=== PATIENT | male | born 1995 | race Caucasian/White ===

== ENCOUNTER 2016-10-28 12:11 | Inpatient (IN) | payer OTHER ==
[2016-10-28 13:36] VITALS: BMI 26.6
--- NOTE | 2016-10-28 15:45 | HP ---
COWS - Scale Resting Pulse: 0= ME 80 or Below Sweatin= Chills/Flushing Restless Observation: 3= Extraneous Movement Pupil Size: 2= Moderately Dilated Bone or Joint Aches: 4=Acute Joint/Muscle Pain Runny Nose/ Eye Tearin= Nasal Congestion GI Upset > 30mins: 3= Vomiting/Diarrhea Tremor Observation: 1= Tremor Butler, Not Seen Yawning Observation: 1= 1-2x During Session Anxiety or Irritability: 2=Irritable/Anxious Goose Flesh Skin: 0=Smooth Skin COWS Score: 18 Admission ROS [facility] Chief Complaint: DETOX TX FOR PERCOCETS DEPENDENCE Allergies/Adverse Reactions: Allergies Allergy/AdvReac Type Severity Reaction Status Date / Time cefaclor [From [facility]] Allergy Severe Hives Verified 10/28/16 15:41 History of Present Illness: 21 Y/O MALE WITH A HX OF PERCOCETS DEPENDENCE AND SPORADIC COCAINE AND MARIJUANA USE SEEKING DETOX TX FOR THE FIRST TIME. PT WAS REFERRED TO DETOX FROM THE [facility]. PT STATES WAS THERE [employer] [facility] FOR SEVERE WITHDRAWAL SX-NAUSEA,VOMITING, DIARRHEA,HOT/COLD FLASHES, BODYACHES,ANXIETY,IRRITABILITY. STATES WAS INFUSED WITH IV HYDRATION AND D/C'D THIS MORNING AND REFERRED TO DETOX AND REHAB.. COPY OF D/C PAPERS IN PT'S CHART. ADDENDUM: PT ALSO HAS BRACE ON HIS LEFT HAND FROM SX DUE TO FALL IN SEPTEMBER AT SAME HOSPITAL. PT WAS TO RETURNED TO HIS DOCTOR TO TAKE OUT THE PIN YESTERDAY BUT FOR THE SNOWFALL AND WITHDRAWAL SX, HE DID NOT MAKE IT. PT TO F/U AFTER DETOX. Exam Limitations: No Limitations - Ebola screening Have you traveled outside of the country in the last 21 days: No Have you had contact with anyone from an Ebola affected area: No Have you been sick,other than usual withdrawal symptoms: No Do you have a fever: No - Review of Systems Constitutional: Chills, Loss of Appetite, Night Sweats, Changes in sleep EENT: reports: Tearing, Nose Congestion Respiratory: reports: Shortness of Breath (HX ASTHMA), Wheezing Cardiac: reports: Lightheadedness GI: reports: Constipated, Diarrhea, Nausea, Poor Appetite, Poor Fluid Intake, Vomiting : reports: Dysuria (DUE TO OPIATE USE) Musculoskeletal: reports: Joint Pain, Muscle Pain, Other (FX LEFT HAND DUE TO FALL IN FERUARY 2017. SX AT THE [facility] WITH PINS AND ON HAND BRACE.) Integumentary: reports: No Symptoms Reported Neuro: reports: Headache, Tremors, Dizziness Hematology: reports: No Symptoms Reported Psychiatric: reports: Orientated x3, Anxious Other Systems: Reviewed and Negative Patient History - Patient Medical History Hx Anemia: No Hx Asthma: Yes (MDI) Hx Cardiac Disorders: No Hx Hypertension: No Hx Hypercholesterolemia: No HX Cerebrovascular Accident: No Hx Seizures: No Hx Diabetes: No Hx Gastrointestinal Disorders: No Hx Genitourinary Disorders: No Hx Sexually Transmitted Disorders: No Hx Renal Disease (ESRD): No Hx Thyroid Disease: No Hx Human Immunodeficiency Virus (HIV): No (NEGATIVE HX) Hx Hepatitis C: No Hx Depression: No Hx Suicide Attempt: No (DENIES) Hx Bipolar Disorder: No Hx Schizophrenia: No - Patient Surgical History Past Surgical History: Yes Hx Neurologic Surgery: No Hx Cataract Extraction: No Hx Cardiac Surgery: No Hx Lung Surgery: No Hx Breast Surgery: No Hx Breast Biopsy: No Hx Abdominal Surgery: No Hx Appendectomy: No Hx Cholecystectomy: No Hx Genitourinary Surgery: No Hx Orthopedic Surgery: Yes (LEFT HAND DUE TO FALL FX WITH PINS--09/2016) Anesthesia Reaction: No - PPD History Previous Implant?: Yes (BUT NOT SURE) Documented Results: Negative w/o proof Implanted On Prior [facility] Admission?: No PPD to be Administered?: Yes - Reproductive History Patient is a Female of Child Bearing Age (11 -55 yrs old): No (MALE) - Smoking Cessation Smoking history: Current every day smoker Have you smoked in the past 12 months: Yes Aproximately how many cigarettes per day: 1 Hx Chewing Tobacco Use: No Initiated information on smoking cessation: Yes 'Breaking Loose' booklet given: 10/28/16 - Substance & Tx. History Hx Alcohol Use: No (DENIES) Hx Substance Use: Yes (PERCOCETS/COCAINE/MARIJUANA) Substance Use Type: Opiates Hx Substance Use Treatment: No (NEVER BEEN IN TREATMENT) - Substances Abused PERCOCETS Route: Oral Frequency: Daily Amount used: 12 PILLS(10 MG EACH) Age of first use: 18 Date of Last Use: 10/26/16 Cocaine Route: Inhalation Frequency: 1-3 times last 30 days Amount used: $20 Age of first use: 19 Date of Last Use: 10/06/16 Marijuana/Hashish Route: Smoking Frequency: 1-3 times last 30 days Amount used: 1 BLUNT Age of first use: 16 Date of Last Use: 10/27/16 Family Disease History - Family Disease History Family Disease History: Diabetes: Grandparent, Mother Admission Physical Exam [facility] - Vital Signs Vital Signs: Vital Signs - 24 hr 10/28/16 13:34 Temperature 98.2 F Pulse Rate 68 Respiratory 18 Rate Blood Pressure 127/77 - Physical General Appearance: Yes: Moderate Distress, Irritable, Anxious HEENTM: Yes: EOMI, Normocephalic, ELISE, Pharynx Normal, Nasal Congestion, Rhinorrhea Respiratory: Yes: Chest Non-Tender, Lungs Clear, Normal Breath Sounds, No Respiratory Distress Neck: Yes: Supple, Trachea in good position Breast: Yes: Breast Exam Deferred Cardiology: Yes: Regular Rhythm, Regular Rate, S1, S2 Abdominal: Yes: Normal Bowel Sounds, Non Tender, Soft Genitourinary: Yes: Other (N/C) Back: Yes: Within Normal Limits Musculoskeletal: Yes: full range of Motion, Gait Steady, Other (LEFT HAND ON BRACE. ACTIVE ROM ON FINGERS. COLOR WNL.) Extremities: Yes: Normal Range of Motion, Non-Tender Neurological: Yes: pet handler II-XII NML intact, Fully Oriented, Alert, Motor Strength 5/5 Integumentary: Yes: Dry, Warm Lymphatic: Yes: Within Normal Limits - Diagnostic (1) Opioid dependence with withdrawal Current Visit: Yes Status: Acute (2) Cocaine abuse Current Visit: Yes Status: Acute (3) Marijuana abuse Current Visit: Yes Status: Acute (4) History of asthma Current Visit: Yes Status: Chronic Cleared for Admission [facility] - Detox or Rehab [facility] Level of Care: Medically Managed Detox Regimen/Protocol: Methadone [facility] Breath Alcohol Content Breath Alcohol Content: 0 Urine Drug Screen - Results Drug Screen Negative: No Urine Drug Screen Results: THC-Marijuana, MARY-Cocaine, OXY-Oxycodone
[2016-10-28] MEDS ORDERED: MENTHOL/PHENOL 1 EACH UD MM PRN (16:10)
[2016-10-28] MEDS ORDERED: MAGNESIUM CITRATE 300 ML BOTTLE PO PRN (16:10)
[2016-10-28] MEDS ORDERED: ACETAMINOPHEN 325 MG TABLET (FP) PO PRN (16:10)
[2016-10-28] MEDS ORDERED: P-EPHED 60MG/TRIPROLIDI 2.5MG TABLET PO PRN (16:10)
[2016-10-28] MEDS ORDERED: IBUPROFEN 400 MG TABLET (FP) PO PRN (16:10)
[2016-10-28] MEDS ORDERED: NICOTINE POLACRILEX 2 MG GUM BC PRN (16:10)
[2016-10-28] MEDS ORDERED: guaiFENesin/D-METHORPHAN HB 10 ML UNIT-DOSE CUPS PO PRN (16:10)
[2016-10-28] MEDS ORDERED: MAG HYDROX/AL HYDROX/SIMETH 30 ML UNIT-DOSE CUP PO PRN (16:10)
[2016-10-28] MEDS ORDERED: MAGNESIUM HYDROX 2400MG/30ML ORAL SUSPENSION 30 ML CUP PO PRN (16:10)
[2016-10-28] MEDS ORDERED: CYCLOBENZAPRINE HCL 10 MG TABLET (FP) PO PRN (16:12)
[2016-10-28] MEDS ORDERED: cloNIDine HCL 0.1 MG TABLET PO PRN (16:13)
[2016-10-28] MEDS ORDERED: METHADONE HCL 10 MG TABLET (FOR DETOX USE ONLY) PO ONE ×2 (17:15→23:00)
[2016-10-28] MEDS: diazePAM 5 MG TABLET PO PRN ×2 (17:29→22:06)
[2016-10-28] MEDS: diphenhydrAMINE HCL 50 MG CAPSULE PO PRN (22:06)
[2016-10-28] MEDS: THIAMINE HCL 100 MG TABLET (FP) PO SCH (22:06)
[2016-10-28] MEDS: ALBUTEROL SO4 6.7 GM HFA INHALER IH PRN (22:07)
[2016-10-28 22:23] LABS: URINE APPEARANCE CLEAR; URINE BILIRUBIN NEGATIVE (NEGATIVE); URINE BLOOD NEGATIVE (NEGATIVE); URINE COLOR DKYELLOW; URINE GLUCOSE (UA) NEGATIVE (NEGATIVE); URINE KETONE TRACE (NEGATIVE); URINE LEUK ESTERASE NEGATIVE (NEGATIVE); URINE NITRITE NEGATIVE (NEGATIVE); URINE PROTEIN NEGATIVE (NEGATIVE); URINE UROBILINOGEN NEGATIVE E.U./dl (0.2-1.0)
[2016-10-29] MEDS: diazePAM 5 MG TABLET PO PRN ×4 (05:46→22:02)
[2016-10-29] MEDS: LOPERAMIDE HCL 2 MG CAPSULE PO PRN (08:59)
--- NOTE | 2016-10-29 09:15 | PN ---
BHS COWS - Scale Resting Pulse: 0= OK 80 or Below Sweatin= Chills/Flushing Restless Observation: 3= Extraneous Movement Pupil Size: 1= Pupils >than Normal Bone or Joint Aches: 2= Severe Diffuse Aches Runny Nose/ Eye Tearin= Runny Nose/Eyes GI Upset > 30mins: 3= Vomiting/Diarrhea Tremor Observation of Outstretched Hands: 2= Slight Tremor Visible Yawning Observation: 1= 1-2x During Session Anxiety or Irritability: 2=Irritable/Anxious Goose Flesh Skin: 0=Smooth Skin COWS Score: 17 BHS Progress Note (SOAP) Subjective: ALERT,IRRITABLE,ANXIOUS,INTERRUPTED SLEEP,TREMOR,PAIN IN THE BODY AND BACK Objective: 10/29/16 09:13 Vital Signs Temperature 97.6 F 10/29/16 06:36 Pulse Rate 61 10/29/16 06:36 Respiratory Rate 16 10/29/16 06:36 Blood Pressure 123/72 10/29/16 06:36 O2 Sat by Pulse Oximetry (%) EKG NSR,NORMAL ECG Laboratory Last Values Urine Color Dkyellow 10/28/16 22:10 Urine Appearance Clear 10/28/16 22:10 Urine pH 5.0 (5.0-8.0) 10/28/16 22:10 Ur Specific [place] 1.036 (1.001-1.035) H 10/28/16 22:10 Urine Protein Negative (NEGATIVE) 10/28/16 22:10 Urine Glucose (UA) Negative (NEGATIVE) 10/28/16 22:10 Urine Ketones Trace (NEGATIVE) H 10/28/16 22:10 Urine Blood Negative (NEGATIVE) 10/28/16 22:10 Urine Nitrite Negative (NEGATIVE) 10/28/16 22:10 Urine Bilirubin Negative (NEGATIVE) 10/28/16 22:10 Urine Urobilinogen Negative E.U./dl (0.2-1.0) 10/28/16 22:10 Ur Leukocyte Esterase Negative (NEGATIVE) 10/28/16 22:10 LABS PENDING Assessment: 10/29/16 09:14 WITHDRAWAL SYMPTOM Plan: WITHDRAWAL SYMPTOM,CONTINUE DETOX
[2016-10-29] MEDS ORDERED: METHADONE HCL 10 MG TABLET (FOR DETOX USE ONLY) PO ONE (10:00)
[2016-10-29 10:03] LABS: MCH 30.3 pg (25.7-33.7); MCHC 33.4 g/dl (32.0-35.9); MEAN CELL VOLUME 90.7 fl (80-96); MEAN PLT VOLUME 8.4 fl (7.5-11.1); PLATELET COUNT 298 K/MM3 (134-434); RDW 12.7 % (11.9-15.9); SGOT/AST 19 U/L (15-37); SGPT/ALT 57 U/L (12-78); WHITE BLOOD COUNT 7.1 K/mm3 (4.0-10.0)
[2016-10-29 10:09] LABS: ALBUMIN 4.9 g/dl (3.4-5.0); ALK PHOS 95 U/L (45-117); ANION GAP 8 (8-16); BILIRUBIN,TOTAL 0.7 mg/dL (0.2-1.0); CALCIUM 9.9 mg/dL (8.5-10.1); CO2 28 mmol/L (21-32); CREATININE 0.9 mg/dL (0.7-1.3); GLUCOSE,RANDOM 108 mg/dL (74-106); TOT PROT 8.1 g/dl (6.4-8.2)
[2016-10-29] MEDS: PRENATAL VITAMINS W/ FOLIC ACID TABLET (FP) PO SCH (10:11)
--- NOTE | 2016-10-29 15:26 | EKG ---
Test Reason : Blood Pressure : / mmHG Vent. Rate : 061 BPM Atrial Rate : 061 BPM P-R Int : 136 ms QRS Dur : 096 ms QT Int : 394 ms P-R-T Axes : 060 051 015 degrees QTc Int : 396 ms NORMAL SINUS RHYTHM NORMAL ECG NO PREVIOUS ECGS AVAILABLE Confirmed by LESLEY DELANEY MD ([id number]) on 10/29/2016 3:26:39 PM Referred By: Confirmed By:LESLEY DELANEY MD
[2016-10-29] MEDS: ALBUTEROL SO4 6.7 GM HFA INHALER IH PRN (17:27)
[2016-10-29] MEDS: THIAMINE HCL 100 MG TABLET (FP) PO SCH (22:03)
[2016-10-29] MEDS: diphenhydrAMINE HCL 50 MG CAPSULE PO PRN (22:03)
[2016-10-30] MEDS: diazePAM 5 MG TABLET PO PRN ×4 (05:21→22:06)
[2016-10-30] MEDS: ALBUTEROL SO4 6.7 GM HFA INHALER IH PRN ×2 (05:22→22:07)
[2016-10-30] MEDS ORDERED: METHADONE HCL 5 MG TABLET (FOR DETOX USE ONLY) PO ONE (10:00)
[2016-10-30] MEDS: PRENATAL VITAMINS W/ FOLIC ACID TABLET (FP) PO SCH (10:14)
[2016-10-30] MEDS: LOPERAMIDE HCL 2 MG CAPSULE PO PRN (11:45)
--- NOTE | 2016-10-30 12:27 | PN ---
BHS COWS - Scale Resting Pulse: 1= AL 81-100 Sweatin= Chills/Flushing Restless Observation: 1= Difficult to Sit Still Pupil Size: 0= Normal to Room Light Bone or Joint Aches: 2= Severe Diffuse Aches Runny Nose/ Eye Tearin= Runny Nose/Eyes GI Upset > 30mins: 0= None Tremor Observation of Outstretched Hands: 2= Slight Tremor Visible Yawning Observation: 1= 1-2x During Session Anxiety or Irritability: 2=Irritable/Anxious Goose Flesh Skin: 3=Piloerection COWS Score: 15 BHS Progress Note (SOAP) Subjective: Interrupted sleep, Tremors, Sweating, body Aches, Hot / Cold sensations, Anxiety. Objective: PT. A & O X 2 (DISORIENTED ABOUT DAY /DATE). PT. OBSERVED AMBULATING ON UNIT. 10/30/16 12:23 Vital Signs Temperature 96.4 F L 10/30/16 10:21 Pulse Rate 81 10/30/16 10:21 Respiratory Rate 20 10/30/16 10:21 Blood Pressure 133/75 10/30/16 10:21 O2 Sat by Pulse Oximetry (%) Laboratory Last Values WBC 7.1 K/mm3 (4.0-10.0) 10/29/16 06:00 RBC 4.68 M/mm3 (4.00-5.60) 10/29/16 06:00 Hgb 14.2 GM/dL (11.7-16.9) 10/29/16 06:00 Hct 42.5 % (35.4-49) 10/29/16 06:00 MCV 90.7 fl (80-96) 10/29/16 06:00 MCHC 33.4 g/dl (32.0-35.9) 10/29/16 06:00 RDW 12.7 % (11.9-15.9) 10/29/16 06:00 Plt Count 298 K/MM3 (134-434) 10/29/16 06:00 MPV 8.4 fl (7.5-11.1) 10/29/16 06:00 Sodium 142 mmol/L (136-145) 10/29/16 06:00 Potassium 4.2 mmol/L (3.5-5.1) 10/29/16 06:00 Chloride 106 mmol/L (98-107) 10/29/16 06:00 Carbon Dioxide 28 mmol/L (21-32) 10/29/16 06:00 Anion Gap 8 (8-16) 10/29/16 06:00 BUN 12 mg/dL (7-18) 10/29/16 06:00 Creatinine 0.9 mg/dL (0.7-1.3) 10/29/16 06:00 Creat Clearance w eGFR > 60 (>60) 10/29/16 06:00 Random Glucose 108 mg/dL (74-106) H 10/29/16 06:00 Calcium 9.9 mg/dL (8.5-10.1) 10/29/16 06:00 Total Bilirubin 0.7 mg/dL (0.2-1.0) 10/29/16 06:00 AST 19 U/L (15-37) 10/29/16 06:00 ALT 57 U/L (12-78) 10/29/16 06:00 Alkaline Phosphatase 95 U/L (45-117) 10/29/16 06:00 Total Protein 8.1 g/dl (6.4-8.2) 10/29/16 06:00 Albumin 4.9 g/dl (3.4-5.0) 10/29/16 06:00 Urine Color Dkyellow 10/28/16 22:10 Urine Appearance Clear 10/28/16 22:10 Urine pH 5.0 (5.0-8.0) 10/28/16 22:10 Ur Specific [place] 1.036 (1.001-1.035) H 10/28/16 22:10 Urine Protein Negative (NEGATIVE) 10/28/16 22:10 Urine Glucose (UA) Negative (NEGATIVE) 10/28/16 22:10 Urine Ketones Trace (NEGATIVE) H 10/28/16 22:10 Urine Blood Negative (NEGATIVE) 10/28/16 22:10 Urine Nitrite Negative (NEGATIVE) 10/28/16 22:10 Urine Bilirubin Negative (NEGATIVE) 10/28/16 22:10 Urine Urobilinogen Negative E.U./dl (0.2-1.0) 10/28/16 22:10 Ur Leukocyte Esterase Negative (NEGATIVE) 10/28/16 22:10 RPR Titer Nonreactive (NONREACTIVE) 10/29/16 06:00 Hepatitis C Antibody <0.1 s/co ratio (0.0-0.9) 10/28/16 06:00 LABS NOTED. Assessment: 10/30/16 12:25 WITHDRAWAL SYMPTOMS. Plan: CONTINUE DETOX.
[2016-10-30] MEDS: THIAMINE HCL 100 MG TABLET (FP) PO SCH (22:06)
[2016-10-30] MEDS: diphenhydrAMINE HCL 50 MG CAPSULE PO PRN (22:06)
[2016-10-31] MEDS: diazePAM 5 MG TABLET PO PRN ×2 (05:17→10:10)
[2016-10-31] MEDS: ALBUTEROL SO4 6.7 GM HFA INHALER IH PRN ×2 (05:18→18:31)
[2016-10-31] MEDS ORDERED: METHADONE HCL 5 MG TABLET (FOR DETOX USE ONLY) PO ONE (10:00)
[2016-10-31] MEDS: PRENATAL VITAMINS W/ FOLIC ACID TABLET (FP) PO SCH (10:07)
[2016-10-31] MEDS: LOPERAMIDE HCL 2 MG CAPSULE PO PRN (10:08)
--- NOTE | 2016-10-31 13:48 | PN ---
S Progress Note (SOAP) Subjective: Sweating, Stomach Cramping, Diarrhea, Tremors, Body Aches. Objective: PT. A & O X 2 (DISORIENTED ABOUT DAY / DATE). PT. OBSERVED AMBULATING ON UNIT. 10/31/16 13:46 Vital Signs Temperature 96.7 F L 10/31/16 13:04 Pulse Rate 100 H 10/31/16 13:04 Respiratory Rate 20 10/31/16 13:04 Blood Pressure 133/82 10/31/16 13:04 O2 Sat by Pulse Oximetry (%) Laboratory Last Values WBC 7.1 K/mm3 (4.0-10.0) 10/29/16 06:00 RBC 4.68 M/mm3 (4.00-5.60) 10/29/16 06:00 Hgb 14.2 GM/dL (11.7-16.9) 10/29/16 06:00 Hct 42.5 % (35.4-49) 10/29/16 06:00 MCV 90.7 fl (80-96) 10/29/16 06:00 MCHC 33.4 g/dl (32.0-35.9) 10/29/16 06:00 RDW 12.7 % (11.9-15.9) 10/29/16 06:00 Plt Count 298 K/MM3 (134-434) 10/29/16 06:00 MPV 8.4 fl (7.5-11.1) 10/29/16 06:00 Sodium 142 mmol/L (136-145) 10/29/16 06:00 Potassium 4.2 mmol/L (3.5-5.1) 10/29/16 06:00 Chloride 106 mmol/L (98-107) 10/29/16 06:00 Carbon Dioxide 28 mmol/L (21-32) 10/29/16 06:00 Anion Gap 8 (8-16) 10/29/16 06:00 BUN 12 mg/dL (7-18) 10/29/16 06:00 Creatinine 0.9 mg/dL (0.7-1.3) 10/29/16 06:00 Creat Clearance w eGFR > 60 (>60) 10/29/16 06:00 Random Glucose 108 mg/dL (74-106) H 10/29/16 06:00 Calcium 9.9 mg/dL (8.5-10.1) 10/29/16 06:00 Total Bilirubin 0.7 mg/dL (0.2-1.0) 10/29/16 06:00 AST 19 U/L (15-37) 10/29/16 06:00 ALT 57 U/L (12-78) 10/29/16 06:00 Alkaline Phosphatase 95 U/L (45-117) 10/29/16 06:00 Total Protein 8.1 g/dl (6.4-8.2) 10/29/16 06:00 Albumin 4.9 g/dl (3.4-5.0) 10/29/16 06:00 Urine Color Dkyellow 10/28/16 22:10 Urine Appearance Clear 10/28/16 22:10 Urine pH 5.0 (5.0-8.0) 10/28/16 22:10 Ur Specific [place] 1.036 (1.001-1.035) H 10/28/16 22:10 Urine Protein Negative (NEGATIVE) 10/28/16 22:10 Urine Glucose (UA) Negative (NEGATIVE) 10/28/16 22:10 Urine Ketones Trace (NEGATIVE) H 10/28/16 22:10 Urine Blood Negative (NEGATIVE) 10/28/16 22:10 Urine Nitrite Negative (NEGATIVE) 10/28/16 22:10 Urine Bilirubin Negative (NEGATIVE) 10/28/16 22:10 Urine Urobilinogen Negative E.U./dl (0.2-1.0) 10/28/16 22:10 Ur Leukocyte Esterase Negative (NEGATIVE) 10/28/16 22:10 RPR Titer Nonreactive (NONREACTIVE) 10/29/16 06:00 Hepatitis C Antibody <0.1 s/co ratio (0.0-0.9) 10/28/16 06:00 LABS NOTED. Assessment: 10/31/16 13:47 WITHDRAWAL SYMPTOMS. Plan: CONTINUE DETOX.
[2016-10-31] MEDS: hydrOXYzine PAMOATE 25 MG CAPSULE (FP) PO PRN ×2 (18:30→22:16)
[2016-10-31] MEDS: THIAMINE HCL 100 MG TABLET (FP) PO SCH (22:13)
[2016-10-31] MEDS: diphenhydrAMINE HCL 50 MG CAPSULE PO PRN (22:15)
[2016-11-01] MEDS: ALBUTEROL SO4 6.7 GM HFA INHALER IH PRN ×2 (05:23→22:08)
--- NOTE | 2016-11-01 09:00 | PN ---
S Progress Note (SOAP) Subjective: Fatigued, interrupted sleep, body aches, anxiety Objective: Vital Signs Temperature 98.4 F 11/01/16 06:22 Pulse Rate 90 11/01/16 06:22 Respiratory Rate 18 11/01/16 06:22 Blood Pressure 123/74 11/01/16 06:22 O2 Sat by Pulse Oximetry (%) Laboratory Last Values WBC 7.1 K/mm3 (4.0-10.0) 10/29/16 06:00 RBC 4.68 M/mm3 (4.00-5.60) 10/29/16 06:00 Hgb 14.2 GM/dL (11.7-16.9) 10/29/16 06:00 Hct 42.5 % (35.4-49) 10/29/16 06:00 MCV 90.7 fl (80-96) 10/29/16 06:00 MCHC 33.4 g/dl (32.0-35.9) 10/29/16 06:00 RDW 12.7 % (11.9-15.9) 10/29/16 06:00 Plt Count 298 K/MM3 (134-434) 10/29/16 06:00 MPV 8.4 fl (7.5-11.1) 10/29/16 06:00 Sodium 142 mmol/L (136-145) 10/29/16 06:00 Potassium 4.2 mmol/L (3.5-5.1) 10/29/16 06:00 Chloride 106 mmol/L (98-107) 10/29/16 06:00 Carbon Dioxide 28 mmol/L (21-32) 10/29/16 06:00 Anion Gap 8 (8-16) 10/29/16 06:00 BUN 12 mg/dL (7-18) 10/29/16 06:00 Creatinine 0.9 mg/dL (0.7-1.3) 10/29/16 06:00 Creat Clearance w eGFR > 60 (>60) 10/29/16 06:00 Random Glucose 108 mg/dL (74-106) H 10/29/16 06:00 Calcium 9.9 mg/dL (8.5-10.1) 10/29/16 06:00 Total Bilirubin 0.7 mg/dL (0.2-1.0) 10/29/16 06:00 AST 19 U/L (15-37) 10/29/16 06:00 ALT 57 U/L (12-78) 10/29/16 06:00 Alkaline Phosphatase 95 U/L (45-117) 10/29/16 06:00 Total Protein 8.1 g/dl (6.4-8.2) 10/29/16 06:00 Albumin 4.9 g/dl (3.4-5.0) 10/29/16 06:00 Urine Color Dkyellow 10/28/16 22:10 Urine Appearance Clear 10/28/16 22:10 Urine pH 5.0 (5.0-8.0) 10/28/16 22:10 Ur Specific [place] 1.036 (1.001-1.035) H 10/28/16 22:10 Urine Protein Negative (NEGATIVE) 10/28/16 22:10 Urine Glucose (UA) Negative (NEGATIVE) 10/28/16 22:10 Urine Ketones Trace (NEGATIVE) H 10/28/16 22:10 Urine Blood Negative (NEGATIVE) 10/28/16 22:10 Urine Nitrite Negative (NEGATIVE) 10/28/16 22:10 Urine Bilirubin Negative (NEGATIVE) 10/28/16 22:10 Urine Urobilinogen Negative E.U./dl (0.2-1.0) 10/28/16 22:10 Ur Leukocyte Esterase Negative (NEGATIVE) 10/28/16 22:10 RPR Titer Nonreactive (NONREACTIVE) 10/29/16 06:00 Hepatitis C Antibody <0.1 s/co ratio (0.0-0.9) 10/28/16 06:00 labs noted Assessment: Withdrawal Symptoms Plan: Continue Detox
[2016-11-01] MEDS ORDERED: METHADONE HCL 10 MG TABLET (FOR DETOX USE ONLY) PO ONE (10:00)
[2016-11-01] MEDS: PRENATAL VITAMINS W/ FOLIC ACID TABLET (FP) PO SCH (10:10)
[2016-11-01] MEDS: diphenhydrAMINE HCL 50 MG CAPSULE PO PRN (22:07)
[2016-11-01] MEDS: THIAMINE HCL 100 MG TABLET (FP) PO SCH (22:07)
[2016-11-02] MEDS: hydrOXYzine PAMOATE 25 MG CAPSULE (FP) PO PRN (05:34)
[2016-11-02] MEDS ORDERED: METHADONE HCL 5 MG TABLET (FOR DETOX USE ONLY) PO ONE (06:00)
[2016-11-02 06:16] VITALS: BP 120/84; PULSE 84; TEMP 98.4
--- NOTE | 2016-11-02 08:36 | DS ---
[facility] Detox Discharge Summary Admission Date: 10/28/16 Discharge Date: 11/02/16 - History Present History: Opioid Dependence Pertinent Past History: Asthma - Physical Exam Results Vital Signs: Vital Signs Temperature 98.4 F 11/02/16 06:16 Pulse Rate 84 11/02/16 06:16 Respiratory Rate 16 11/02/16 06:16 Blood Pressure 120/84 11/02/16 06:16 O2 Sat by Pulse Oximetry (%) Pertinent Admission Physical Exam Findings: Withdrawal sx. Laboratory Last Values WBC 7.1 K/mm3 (4.0-10.0) 10/29/16 06:00 RBC 4.68 M/mm3 (4.00-5.60) 10/29/16 06:00 Hgb 14.2 GM/dL (11.7-16.9) 10/29/16 06:00 Hct 42.5 % (35.4-49) 10/29/16 06:00 MCV 90.7 fl (80-96) 10/29/16 06:00 MCHC 33.4 g/dl (32.0-35.9) 10/29/16 06:00 RDW 12.7 % (11.9-15.9) 10/29/16 06:00 Plt Count 298 K/MM3 (134-434) 10/29/16 06:00 MPV 8.4 fl (7.5-11.1) 10/29/16 06:00 Sodium 142 mmol/L (136-145) 10/29/16 06:00 Potassium 4.2 mmol/L (3.5-5.1) 10/29/16 06:00 Chloride 106 mmol/L (98-107) 10/29/16 06:00 Carbon Dioxide 28 mmol/L (21-32) 10/29/16 06:00 Anion Gap 8 (8-16) 10/29/16 06:00 BUN 12 mg/dL (7-18) 10/29/16 06:00 Creatinine 0.9 mg/dL (0.7-1.3) 10/29/16 06:00 Creat Clearance w eGFR > 60 (>60) 10/29/16 06:00 Random Glucose 108 mg/dL (74-106) H 10/29/16 06:00 Calcium 9.9 mg/dL (8.5-10.1) 10/29/16 06:00 Total Bilirubin 0.7 mg/dL (0.2-1.0) 10/29/16 06:00 AST 19 U/L (15-37) 10/29/16 06:00 ALT 57 U/L (12-78) 10/29/16 06:00 Alkaline Phosphatase 95 U/L (45-117) 10/29/16 06:00 Total Protein 8.1 g/dl (6.4-8.2) 10/29/16 06:00 Albumin 4.9 g/dl (3.4-5.0) 10/29/16 06:00 Urine Color Dkyellow 10/28/16 22:10 Urine Appearance Clear 10/28/16 22:10 Urine pH 5.0 (5.0-8.0) 10/28/16 22:10 Ur Specific [place] 1.036 (1.001-1.035) H 10/28/16 22:10 Urine Protein Negative (NEGATIVE) 10/28/16 22:10 Urine Glucose (UA) Negative (NEGATIVE) 10/28/16 22:10 Urine Ketones Trace (NEGATIVE) H 10/28/16 22:10 Urine Blood Negative (NEGATIVE) 10/28/16 22:10 Urine Nitrite Negative (NEGATIVE) 10/28/16 22:10 Urine Bilirubin Negative (NEGATIVE) 10/28/16 22:10 Urine Urobilinogen Negative E.U./dl (0.2-1.0) 10/28/16 22:10 Ur Leukocyte Esterase Negative (NEGATIVE) 10/28/16 22:10 RPR Titer Nonreactive (NONREACTIVE) 10/29/16 06:00 Hepatitis C Antibody <0.1 s/co ratio (0.0-0.9) 10/28/16 06:00 labs noted - Treatment Hospital Course: Detox Protocol Followed, Detoxed Safely, Responded well, Discharged Condition Good, Rehab Referral Accepted - Medication Discharge Medications: Ambulatory Orders Albuterol Sulfate Inhaler - [Ventolin Hfa Inhaler -] 2 inh PO Q4H PRN 10/28/16 - Diagnosis (1) Opioid dependence with withdrawal Current Visit: Yes Status: Acute (2) History of asthma Current Visit: Yes Status: Chronic - AMA Did Patient Leave Against Medical Advice: No
== END 2016-11-02 09:30 | disposition home or self-care (01) | DRG 897 ==
LOC: YASAS 12:11 → Y3N 17:02
PROVIDERS: ADMIT Internal Medicine; ATTEND Internal Medicine
PROC: HZ2ZZZZ Detoxification Services for Substance Abuse Treatment (ICD-10-PCS; principal; 2016-11-02)
DX: F11.23 Opioid dependence with withdrawal (principal); F14.10 Cocaine abuse, uncomplicated; F12.10 Cannabis abuse, uncomplicated; J45.909 Unspecified asthma, uncomplicated
CPT/HCPCS: 36415; 80053; 81003; 85027; 86593; 93005; 93010

== ENCOUNTER 2023-09-12 12:09 | Inpatient (IN) | payer SELFPAY ==
[2023-09-12 12:29] VITALS: BMI 27.1
[2023-09-12] MEDS ORDERED: MAGNESIUM HYDROX 2400MG/30ML ORAL SUSPENSION 30 ML CUP PO PRN (13:14)
[2023-09-12] MEDS ORDERED: guaiFENesin 600 MG TABLET.ER (FP) PO PRN (13:14)
[2023-09-12] MEDS ORDERED: MAG HYDROX/AL HYDROX/SIMETH 30 ML UNIT-DOSE CUP PO PRN (13:14)
[2023-09-12] MEDS ORDERED: BISMUTH SUBSALICYLATE 524 MG/30 ML PO PRN (13:14)
[2023-09-12] MEDS ORDERED: BENZOCAINE/MENTHOL (CHLORASEPTIC ) LOZENGE MM PRN (13:14)
[2023-09-12] MEDS ORDERED: ONDANSETRON *ODT* 4 MG TABLET SL PRN (13:14)
[2023-09-12] MEDS ORDERED: NALOXONE HCL (KLOXXADO) 8 MG SPRAY NS PRN (13:14)
[2023-09-12] MEDS ORDERED: DICYCLOMINE HCL 10 MG CAPSULE PO PRN (13:14)
[2023-09-12] MEDS ORDERED: IBUPROFEN 400 MG TABLET (FP) PO PRN (13:14)
[2023-09-12] MEDS ORDERED: LOPERAMIDE HCL 2 MG CAPSULE PO PRN (13:14)
[2023-09-12] MEDS ORDERED: IBUPROFEN 600 MG TABLET (FP) PO PRN (13:14)
[2023-09-12] MEDS ORDERED: BENZONATATE 200 MG CAPSULE PO PRN (13:14)
[2023-09-12] MEDS ORDERED: ACETAMINOPHEN 325 MG TABLET (FP) PO PRN (13:14)
[2023-09-12] MEDS ORDERED: NALOXONE HCL 0.4 MG/ML VIAL IM PRN (13:14)
[2023-09-12] MEDS ORDERED: POLYETHYLENE GLYCOL (HEALTHYLAX) 3350 17 GM PACKET PO PRN (13:14)
[2023-09-12] MEDS ORDERED: P-EPHED 60MG/TRIPROLIDI 2.5MG TABLET PO PRN (13:14)
[2023-09-12] MEDS: METHOCARBAMOL 500 MG TABLET PO PRN (17:54)
[2023-09-12] MEDS: hydrOXYzine PAMOATE 25 MG CAPSULE (FP) PO PRN (17:54)
[2023-09-12] MEDS: MELATONIN 5 MG TABLETS PO SCH (22:25)
[2023-09-12] MEDS: THIAMINE HCL 100 MG TABLET (FP) PO SCH (22:25)
[2023-09-13] MEDS: hydrOXYzine PAMOATE 25 MG CAPSULE (FP) PO PRN ×2 (05:31→13:48)
[2023-09-13] MEDS ORDERED: cloNIDine HCL 0.1 MG TABLET PO PRN (09:09)
[2023-09-13] MEDS ORDERED: methaDONE HCL 10 MG TABLET (FOR DETOX USE ONLY) PO ONE (09:45)
[2023-09-13] MEDS: PRENATAL VITAMINS W/ FOLIC ACID TABLET (FP) PO SCH (09:51)
[2023-09-13 10:14] LABS: HEMATOCRIT 41.5 % (35.4-49); HEMOGLOBIN 14.2 GM/dL (11.7-16.9); MCH 31.7 pg (25.7-33.7); MCHC 34.3 g/dl (32.0-35.9); MEAN CELL VOLUME 92.5 fl (80-96); MEAN PLT VOLUME 8.1 fl (7.5-11.1); PLATELET COUNT 273 10^3/uL (134-434); RBC 4.48 M/mm3 (4.00-5.60)
[2023-09-13 10:21] LABS: CHLORIDE 106 mmol/L (98-107); POTASSIUM 4.4 mmol/L (3.5-5.1); SODIUM 140 mmol/L (136-145)
[2023-09-13 10:28] LABS: ANION GAP 8 mmol/L (4-13); BLOOD UREA NITROGEN 15.9 mg/dL (7-18); CALCIUM 9.3 mg/dL (8.5-10.1); CO2 26 mmol/L (21-32); GLUCOSE,RANDOM 158 mg/dL (74-106)
[2023-09-13 10:31] LABS: SGOT/AST 17 U/L (15-37); SGPT/ALT 44 U/L (13-61)
[2023-09-13 10:33] LABS: BILIRUBIN,TOTAL 0.8 mg/dL (0.2-1); TOT PROT 7.1 g/dl (6.4-8.2)
[2023-09-13 10:34] LABS: ALK PHOS 73 U/L (45-117)
[2023-09-13] MEDS: ALBUTEROL SO4 HFA INHALER IH PRN (15:21)
[2023-09-13] MEDS: diazePAM 5 MG TABLET PO PRN (22:18)
[2023-09-13] MEDS: THIAMINE HCL 100 MG TABLET (FP) PO SCH (22:18)
[2023-09-13] MEDS: MELATONIN 5 MG TABLETS PO SCH (22:19)
[2023-09-14] MEDS: PRENATAL VITAMINS W/ FOLIC ACID TABLET (FP) PO SCH (10:05)
[2023-09-14] MEDS: diazePAM 5 MG TABLET PO PRN ×3 (10:11→22:24)
[2023-09-14] MEDS: hydrOXYzine PAMOATE 25 MG CAPSULE (FP) PO PRN ×2 (10:11→17:19)
[2023-09-14] MEDS: METHOCARBAMOL 500 MG TABLET PO PRN ×2 (14:19→22:25)
[2023-09-14] MEDS: MELATONIN 5 MG TABLETS PO SCH (22:23)
[2023-09-14] MEDS: THIAMINE HCL 100 MG TABLET (FP) PO SCH (22:23)
[2023-09-14] MEDS: ALBUTEROL SO4 HFA INHALER IH PRN (22:45)
[2023-09-15] MEDS ORDERED: methaDONE HCL 10 MG TABLET (FOR DETOX USE ONLY) PO ONE (10:00)
[2023-09-15] MEDS: ALBUTEROL SO4 HFA INHALER IH PRN (10:13)
[2023-09-15] MEDS: PRENATAL VITAMINS W/ FOLIC ACID TABLET (FP) PO SCH (10:13)
[2023-09-15] MEDS: diazePAM 5 MG TABLET PO PRN (10:15)
[2023-09-15] MEDS: hydrOXYzine PAMOATE 25 MG CAPSULE (FP) PO PRN (16:02)
[2023-09-15] MEDS: MELATONIN 5 MG TABLETS PO SCH (22:01)
[2023-09-15] MEDS: THIAMINE HCL 100 MG TABLET (FP) PO SCH (22:02)
[2023-09-16] MEDS: METHOCARBAMOL 500 MG TABLET PO PRN ×4 (04:09→22:09)
[2023-09-16] MEDS: ALBUTEROL SO4 HFA INHALER IH PRN ×3 (04:10→22:10)
[2023-09-16] MEDS: PRENATAL VITAMINS W/ FOLIC ACID TABLET (FP) PO SCH (10:02)
[2023-09-16] MEDS: hydrOXYzine PAMOATE 25 MG CAPSULE (FP) PO PRN ×2 (10:06→18:17)
[2023-09-16] MEDS ORDERED: BACITRACIN 0.9 GM PACKET TP SCH (11:00)
[2023-09-16] MEDS: THIAMINE HCL 100 MG TABLET (FP) PO SCH (22:09)
[2023-09-16] MEDS: MELATONIN 5 MG TABLETS PO SCH (22:10)
[2023-09-17 05:38] VITALS: TEMP 97.7
[2023-09-17 09:03] VITALS: BP 141/77; PULSE 18; RESP 66
[2023-09-17] MEDS ORDERED: methaDONE HCL 10 MG TABLET (FOR DETOX USE ONLY) PO ONE (10:00)
== END 2023-09-17 08:40 | disposition home or self-care (01) | DRG 773 ==
LOC: YASAS 12:09 → Y6N 13:21
PROVIDERS: ADMIT Allergy & Immunology; ATTEND Allergy & Immunology
PROC: HZ2ZZZZ Detoxification Services for Substance Abuse Treatment (ICD-10-PCS; principal; 2023-09-12)
DX: F11.23 Opioid dependence with withdrawal (principal); F14.10 Cocaine abuse, uncomplicated; F12.10 Cannabis abuse, uncomplicated; U07.0 Vaping-related disorder
CPT/HCPCS: 0241U-QW; 36415; 80053; 80307; 85027; 86780; 87811